=== PATIENT | female | born 1975 | race Two or more races ===

== ENCOUNTER 2025-01-14 15:24 | Emergency (ER) | payer OTHER, BC, SELFPAY ==
[2025-01-14 15:42] VITALS: BP 123/79; PULSE 70; RESP 18; TEMP 36.5; O2SAT 98; BMI 31.4
--- NOTE | 2025-01-14 15:55 | EDRME_ITS ---
Rapid Medical Screening Exam [facility] Arrival date/time: 01/14/25 15:24 This is a 49-year-old female that comes into the emergency room with complaints of right leg pain. Patient was just seen by primary doctor and was told to come to the emergency room and have blood work done. Patient states that she has an injury to her right lower leg approximately 1 month ago had x-rays and were unremarkable. Patient has a wound that is not healing to her right lower leg. Primary doctor wants her to have blood work done for possible infection. Patient currently on immunosuppressive therapy such as Humira, prednisone. Patient has rheumatoid arthritis. Patient I have greeted and performed a focused initial assessment of this patient. Initial appropriate labs ordered at this time. A comprehensive ED assessment and evaluation of the patient and analysis of all test and completion of medical decision making process will be conducted by additional ED provider. Chief Complaint: Extremity Injury, Lower Time Seen by Provider: 01/14/25 15:43 Vital signs: Vital Signs Temperature 97.7 F 01/14/25 15:42 Pulse Rate 70 01/14/25 15:42 Respiratory Rate 18 01/14/25 15:42 Blood Pressure 123/79 01/14/25 15:42 Pulse Oximetry (%) 98 01/14/25 15:42 Oxygen Delivery Method Room Air 01/14/25 15:42 Exam: Right lower extremity has a wound to dorsal lower leg, patient alert and oriented Clinical Impression: Cellulitis versus bone infection versus poor wound healing differential diagnosis
--- NOTE | 2025-01-14 15:58 | XR_ITS ---
Examination: Tibia-Fibula, right, 2 views Technique: Tibia-fibula AP lateral 2 views Date and time of exam: January 14, 2025, 1615 hours INDICATIONS: Nonhealing wound distal tibia noticed beginning 1 month ago FINDINGS: Soft tissue swelling anterior to the lower tibia No foreign body No periosteal new bone or cortical bone destruction IMPRESSION: Negative for osteomyelitis Consider MRI lower leg without contrast follow-up
[2025-01-14 16:24] LABS: Lactate (Lactic Acid) 0.8 mMol/L (0.4-2.0)
[2025-01-14 16:26] LABS: Basophils # (Auto) 0.0 Thou/mm3 (0.0-0.2); Basophils % (Auto) 0 % (0-2.5); Eosinophils # (Auto) 0.0 Thou/mm3 (0.0-0.5); Eosinophils % (Auto) 1 % (0-10); Hematocrit 35.9 % (36.0-46.0); Hemoglobin 12.4 g/dL (12.0-16.0); Immature Granulocytes Auto 0.02 Thou/mm3 (0.00-0.00); Lymphocytes # (Auto) 1.3 Thou/mm3 (1.0-4.8); Lymphocytes % (Auto) 21 % (10-50); Mean Corpuscular HGB Conc 34.5 g/dl (31.0-37.0); Mean Corpuscular Hemoglobin 31.7 pg (25.0-35.0); Mean Corpuscular Volume 92 fL (80-100); Monocytes # (Auto) 0.7 Thou/mm3 (0.0-0.8); Monocytes % (Auto) 11 % (0-12); Neutrophils # (Auto) 4.1 Thou/mm3 (1.8-7.7); Neutrophils % (Auto) 67 % (37-80); Nucleated Red Blood Cell # 0.00 Thou/mm3 (0.00-0.00); Nucleated Red Blood Cell % 0 /100 WBC (0); Platelet Count 246 Thou/mm3 (140-440); RDW Standard Deviation 42.8 fL (36.4-46.3); Red Blood Count 3.91 Miln/mm3 (4.00-5.20); White Blood Count 6.1 Thou/mm3 (3.6-11.0)
[2025-01-14 16:55] LABS: Alanine Aminotransferase 11 U/L (10-49); Albumin, Serum 4.8 gm/dL (3.5-5.0); Albumin/Globulin Ratio 1.7 (1.2-2.2); Alkaline Phosphatase 62 U/L (46-116); Anion Gap 9 (7-16); Aspartate Amino Transferase 18 U/L (0-34); BUN/Creatinine Ratio 18 Ratio (12-20); Bilirubin,Total 0.6 mg/dL (0.3-1.2); Blood Urea Nitrogen 11 mg/dL (9-23); C-Reactive Protein 0.6 mg/dL (0.0-0.9); Calcium 8.8 mg/dL (8.3-10.6); Calcium (Corrected) 8.8 mg/dL (8.5-10.1); Carbon Dioxide 23.8 mMol/L (20.0-31.0); Chloride 107 mMol/L (98-107); Creatinine (Component) 0.6 mg/dL (0.6-1.3); Estimated Creatinine Clearance 112.1 mL/min (>60); Globulin 2.9 gm/dL (2.3-3.5); Glucose 97 mg/dL (74-106); Osmolality,Calculated 278 (275-295); Potassium 4.1 mMol/L (3.4-5.1); Procalcitonin 0.94 ng/ml (0.0-0.49); Sodium 140 mMol/L (136-145); Total Protein 7.7 gm/dL (5.7-8.2); eGFR > 60 See Note
[2025-01-14 17:20] VITALS: BP 132/79; PULSE 72
--- NOTE | 2025-01-14 18:09 | EDNOTE_ITS ---
ED General RME/HPI General Chief complaint: Extremity Injury, Lower Stated complaint: R) LOWER LEG WOUND; SENT BY [facility] Time Seen by Provider: 01/14/25 15:43 Arrival date/time: 01/14/25 15:24 CC: Right lower leg ulceration HPI poor healing secondary to immunosuppressants. Patient is awake alert stating that that site opened up again localized pain already RME / HPI RME / HPI narrative: 01/14/25 15:24 This is a 49-year-old female that comes into the emergency room with complaints of right leg pain. Patient was just seen by primary doctor and was told to come to the emergency room and have blood work done. Patient states that she has an injury to her right lower leg approximately 1 month ago had x-rays and were unremarkable. Patient has a wound that is not healing to her right lower leg. Primary doctor wants her to have blood work done for possible infection. Patient currently on immunosuppressive therapy such as Humira, prednisone. Patient has rheumatoid arthritis. Patient I have greeted and performed a focu sed initial assessment of this patient. Initial appropriate labs ordered at this time. A comprehensive ED assessment and evaluation of the patient and analysis of all test and completion of medical decision making process will be conducted by additional ED provider. Exam: Right lower extremity has a wound to dorsal lower leg, patient alert and o riented Impression: Cellulitis versus bone infection versus poor wound healing differential diagnosis Related Data Home Medications ?Medication ?Instructions ?Recorded ?Confirmed Acetaminophen * (TYLENOL *) 2 tab PO Q4-6HRPRN PRN MANOLO N #0 tabs 06/10/16 Vitamin B Complex (Super B Complex) 1 tab PO QDAY ##0 06/10/16 betamethasone dipropionate 0.05 % 1 appln TOP BID ##0 06/10/16 topical cream pseudoephedrine HCl 60 mg tablet 240 mg PO Q24H PRN AL LERGY #0 tabs 06/10/16 (Sudogest) Previous Rx's ?Medication ?Instructions ?Recorded loratadine 10 mg tablet 10 mg PO QDAY ##30 09/10/12 cephalexin 500 mg capsule 500 mg PO BID #14 caps 01/14 Allergies Allergy/AdvReac Type Severity Reaction Status Date / Time No Known Allergies Allergy Verified 01/14/25 15:27 Review of Systems Review of Systems Narrative Review of Systems: GEN: No fever, no chills, no weight loss EYES: No discharge, no visual changes, no pain HEENT: No ear pain, no congestion, no sore throat PULM: No shortness of breath, no cough, no congestion CV: No chest pain, no dyspnea on exertion, no palpitations GI: No nausea, no vomiting, no diarrhea, no pain, no constipation : No frequency, no urgency, no dysuria MUSC/SKEL: No joint pain, no back pain SKIN: No rash PSYCH: No hallucinations, no depression HEME/LYMPH: No easy bleeding or bruising tendencies NEURO: No weakness, no headache Past Medical History Social History SMOKING STATUS: Never smoker ED Exam Narrative Physical exam: [General: Not in any acute distress Head normocephalic HEENT: Within acceptable limits Neck is supple nontender Chest equal chest rise nontender to palpation Respiratory: Clear to auscultation no wheezes crackles or rubs CV: Rate rhythm is regular no murmurs rubs or clicks Abdomen is distended secondary to body habitus soft nontender no masses positive bowel sounds all 4 quadrants Back: No CVA tenderness no spinous process tenderness from cervical spine thoracic and lumbar spine Skin: Small 1 cm in diameter eschar filled ulceration to the skin on the tibial spine just proximal to the ankle. No surrounding erythema or edema. Otherwise skin is intact no petechiae rash induration ulceration or crepitus Extremities: Moving all extremity against resistance cap refill less than 2 seconds neurosensory intact Neuro: Awake alert oriented x3 Glascow coma 15 no focal deficits] Course Quality Measures none Orders Category Date Time Status XR tibia fibula RT 2V Stat Exams 01/14/25 15:58 Completed Blood Culture (Lab) Stat Lab 01/14/25 16:10 Received CBC Stat Lab 01/14/25 16:18 Completed CRP [C-Reactive Protein] Stat Lab 01/14/25 16:18 Completed Comprehensive Metabolic Panel Stat Lab 01/14/25 16:18 Completed Lactate (Lactic Acid) Stat Lab 01/14/25 16:18 Completed Procalcitonin Stat Lab 01/14/25 16:18 Completed Vital Signs Vital signs: Vital Signs Temperature 97.7 F 01/14/25 15:42 Pulse Rate 70 01/14/25 15:42 Respiratory Rate 18 01/14/25 15:42 Blood Pressure 123/79 01/14/25 15:42 Pulse Oximetry (%) 98 01/14/25 15:42 Oxygen Delivery Method Room Air 01/14/25 15:42 Discharge Plan Plan Patient Disposition: HOME (Self Care) Patient condition on transfer: Stable Prescriptions/Referrals Prescriptions/Med Rec: New cephalexin 500 mg capsule 500 mg PO BID Qty: 14 0RF No Action loratadine 10 MG tablet 10 mg PO QDAY Qty: 30 0RF Acetaminophen * (TYLENOL *) 325 MG tablet 2 tab PO Q4-6HRPRN PRN (Reason: PAIN) Qty: 0 Patient Comments: FOR FEVER OR PAIN pseudoephedrine HCl [Sudogest] 60 MG tablet 240 mg PO Q24H PRN (Reason: ALLERGY) Qty: 0 Vitamin B Complex (Super B Complex) 1 TAB tablet 1 tab PO QDAY Qty: 0 betamethasone dipropionate 15 GM cream 1 appln TOP BID Qty: 0 Referrals: Tony Ellis MD [Physician, Family Practice] - In 1 week No Primary/Family,Physician [Primary Care Provider] - In 1 week Problem List Clinical Impression: Skin ulcer Patient/Caregiver Discharge Instructions Other Activity Instructions:: Take the medication as prescribed, keep this covered clean and dry take a picture of it every day if there is a worsening of symptoms return the emergency room. Education Materials: Wound Care Print Language: Italian Stand Alone Forms: Richelle Award Info., Patient Portal Info Letter, Work/School Release PA/MANAGER PUBLISHING Supervising Physician PA/MANAGER PUBLISHING Supervising Physician: Tj Barker ENP [facility] Clinical Information Provided by: patient Medical Records reviewed [facility] Meds/Rx considered, not ordered None Labs/Rad/Tests considered, not ordered None Chronic Illness/Social Conditions which may negatively complicate care or outcome(s)-explain: None or not applicable EKG EKG not done Labs Labs: interpreted by [facility] Lab(s) Interpretation(s): CBC shows no acute leukocytosis anemia thrombocytopenia CMP shows no significant electrolyte imbalances renal impairment transaminitis or T. bili elevation Procalcitonin at 0.94. Lactic at 0.8. Imaging Imaging Interpretation(s): Tib-fib x-ray is negative for any acute fracture malalignment or dislocation. Medication Administration(s) none Diagnosis Differential Diagnosis ED Complaint MDM: Skin ulcer, cellulitis, abscess
== END 2025-01-14 18:17 | disposition home or self-care (01) ==
PROVIDERS: Nurse Practitioner Family; Emergency Provider Emergency Medicine
DX: L97.919 Non-pressure chronic ulcer of unspecified part of right lower leg with unspecified severity (principal); D84.821 Immunodeficiency due to drugs; M06.9 Rheumatoid arthritis, unspecified; Z79.60 Long term (current) use of unspecified immunomodulators and immunosuppressants
CPT/HCPCS: 36415; 73590; 80053; 83605; 84145; 85025; 86140; 87040; 99282